=== PATIENT | female | born 1965 | race Caucasian/White ===

== ENCOUNTER 2019-11-19 07:19 | Day surgery (SDC) | payer OTHER ==
[~2019-11-19 07:19] MED LIST: CO Q-1010 MG PO; MAGNESIUM200 MG PO; MULTIPLE VITAM1 EAC2 PO; SYNTHROID125 MCG PO; TURMERIC 500 M1 EACH PO; ZINC50 M1 PO
== END 2019-11-19 18:30 | disposition home or self-care (01) ==
LOC: CIR.AMB 07:19
PROVIDERS: ATTEND Colon & Rectal Surgery
DX: K64.8 Other hemorrhoids (principal); Z20.828 Contact with and (suspected) exposure to other viral communicable diseases